=== PATIENT | female | born 2005 | race Two or more races ===

== ENCOUNTER 2024-09-29 19:43 | Observation (INO) | payer OTHER, SELFPAY ==
[2024-09-29] VITALS (8 sets, daily range): BP systolic 129–146; BP diastolic 59–77; PULSE 84–110; RESP 17; TEMP 36.4; BMI 43.0
--- NOTE | 2024-09-29 19:52 | XR_ITS ---
Examination: Complete OB ultrasound greater than 14 weeks Date and time of exam: September 29, 2024 2013 hrs. Indications: Vaginal bleeding and pelvic cramping beginning today Findings: Viable intrauterine single fetus with single amniotic sac presentation cephalic Cardiac motion 140 BPM Placenta anterior grade 2 Umbilical cord insertion 3 vessel seen Amniotic fluid volume adequate spine maternal right Cervix 3.0 cm Right ovary 3.5 x 2.4 cm arterial flow Left ovary obscured by bowel gas. Composite estimated gestational age based on BPD, head circumference, abdominal circumference, femur length is 20 weeks 1 day Estimated weight 328 g. Survey of intracranial anatomy, spinal anatomy, abdominal anatomy, four-chamber heart performed with no abnormalities identified. Impression: Viable intrauterine gestation cephalic presentation Placenta anterior grade 2 no abruption.
--- NOTE | 2024-09-29 19:52 | XR_ITS ---
Examination: Transvaginal ultrasound of the pelvis, Limited Technique: Transvaginal sonographic images pelvis performed using veras scale imaging Exam date and time: September 29, 20242042 hrs. Indications: Bilateral bleeding and pelvic cramping onset today Findings: Cervix 3.2 cm closed Impression: Cervix 3.2 cm closed.
== END 2024-09-29 21:02 | disposition home or self-care (01) ==
PROVIDERS: Admitting Provider Student in an Organized Health Care Education/Training Program; Visit Provider Student in an Organized Health Care Education/Training Program
DX: O46.92 Antepartum hemorrhage, unspecified, second trimester (principal); Z3A.20 20 weeks gestation of pregnancy
CPT/HCPCS: 59899; 76805; 76830

== ENCOUNTER 2025-02-02 07:53 | Outpatient (RCR) | payer OTHER, MEDICAID, SELFPAY ==
--- NOTE | 2025-01-05 08:04 | XR_ITS ---
Examination: Biophysical profile, ultrasound Date and time of exam: January 05, 2025 0808 hours INDICATIONS: Diagnosis maternal obesity complicating Technique: Multiple transabdominal sonographic images of the pelvis abdomen obtained. Attention is directed to the breathing movement, gross body movement, amniotic fluid volume and tone. Findings: Amniotic fluid index 12.5 cm Total biophysical profile is 8 of 8. breathing movement is 2. Gross body movement is 2. tone is 2. Qualitative amniotic fluid volume is 2 Impression: Biophysical profile is 8 of 8.
[2025-01-05 08:37] VITALS: BP 135/63; PULSE 106; RESP 16; TEMP 36.6
--- NOTE | 2025-01-12 08:02 | XR_ITS ---
Examination: Biophysical profile, ultrasound Date and time of exam: 04/14/2025 0813 hours INDICATIONS: Diagnosis maternal obesity complicating Technique: Multiple transabdominal sonographic images of the pelvis abdomen obtained. Attention is directed to the breathing movement, gross body movement, amniotic fluid volume and tone. Findings: Amniotic fluid index 11.5 cm Total biophysical profile is 8 of 8. breathing movement is 2. Gross body movement is 2. tone is 2. Qualitative amniotic fluid volume is 2 Impression: Biophysical profile is 8 of 8.
[2025-01-12 08:38] VITALS: BP 121/74; PULSE 112; RESP 16; TEMP 36.7
--- NOTE | 2025-01-19 08:02 | XR_ITS ---
Examination: Biophysical profile, ultrasound Date and time of exam: 04/21/2025 0819 hours INDICATIONS: Maternal obesity Technique: Multiple transabdominal sonographic images of the pelvis abdomen obtained. Attention is directed to the breathing movement, gross body movement, amniotic fluid volume and tone. Findings: Amniotic fluid index 10.7 cm Total biophysical profile is 8 of 8. breathing movement is 2. Gross body movement is 2. tone is 2. Qualitative amniotic fluid volume is 2 Impression: Biophysical profile is 8 of 8.
[2025-01-19 08:35] VITALS: BP 117/57; PULSE 83; RESP 16; TEMP 36.8
--- NOTE | 2025-01-26 08:07 | XR_ITS ---
Examination: Biophysical profile, ultrasound Date and time of exam: January 26, 2025 0817 hours INDICATIONS: Diagnosis maternal obesity complicating Technique: Multiple transabdominal sonographic images of the pelvis abdomen obtained. Attention is directed to the breathing movement, gross body movement, amniotic fluid volume and tone. Findings: Amniotic fluid index 12.1 cm Total biophysical profile is 8 of 8. breathing movement is 2. Gross body movement is 2. tone is 2. Qualitative amniotic fluid volume is 2 Impression: Biophysical profile is 8 of 8.
[2025-01-26 08:38] VITALS: BP 116/68; PULSE 115; RESP 16; TEMP 36.7
--- NOTE | 2025-02-02 08:12 | XR_ITS ---
Examination: Biophysical profile, ultrasound Date and time of exam: February 02, 2025 0825 hours INDICATIONS: Diagnosis maternal obesity complicating Technique: Multiple transabdominal sonographic images of the pelvis abdomen obtained. Attention is directed to the breathing movement, gross body movement, amniotic fluid volume and tone. Findings: Amniotic fluid index 9.3 cm Total biophysical profile is 8 of 8. breathing movement is 2. Gross body movement is 2. tone is 2. Qualitative amniotic fluid volume is 2 Impression: Biophysical profile is 8 of 8.
[2025-02-02 08:55] VITALS: BP 141/78; PULSE 98; RESP 16; TEMP 36.8
== END 2025-02-02 23:59 | disposition home or self-care (01) ==
LOC: S4S1 07:53
PROVIDERS: Referring Provider Nurse Practitioner Women's Health; Visit Provider Nurse Practitioner Women's Health
DX: O99.213 Obesity complicating pregnancy, third trimester (principal); E66.9 Obesity, unspecified; Z3A.38 38 weeks gestation of pregnancy
CPT/HCPCS: 59025; 76819

== ENCOUNTER 2025-02-10 23:40 | Observation (INO) | payer OTHER, MEDICAID, SELFPAY ==
[2025-02-10 23:57] VITALS: BMI 43.4
[2025-02-11 00:06] VITALS: BP 120/75; PULSE 100; RESP 18; RESP 99; TEMP 37.4
[2025-02-11 00:37] VITALS: BP 132/72; PULSE 100
== END 2025-02-11 01:10 | disposition home or self-care (01) ==
PROVIDERS: Admitting Provider Obstetrics & Gynecology; Visit Provider Obstetrics & Gynecology
DX: O46.93 Antepartum hemorrhage, unspecified, third trimester (principal); Z3A.39 39 weeks gestation of pregnancy
CPT/HCPCS: 59025; 59899

== ENCOUNTER 2025-02-19 04:45 | Inpatient (IN) | payer OTHER, MEDICAID, SELFPAY ==
[2025-02-19] VITALS (16 sets, daily range): BP systolic 125–175; BP diastolic 63–107; PULSE 71–93; RESP 14–19; TEMP 36.7–37.1; BMI 43.9
--- NOTE | 2025-02-19 05:43 | XR_ITS ---
Examination: visualization limited TECHNIQUE: Limited transabdominal sonographic images pelvis Date and time: February 19, 2025 0719 hours INDICATIONS: Diagnosis postdates, preinduction evaluation FINDINGS: Viable intrauterine gestation cephalic presentation spine maternal left Cardiac motion 152 bpm Estimated weight 3798 g IMPRESSION: Viable intrauterine gestation cephalic presentation
[2025-02-19 06:08] LABS: Basophils % (Auto) 0 % (0-2.5); Eosinophils # (Auto) 0.1 Thou/mm3 (0.0-0.5); Eosinophils % (Auto) 1 % (0-10); Hematocrit 30.4 % (36.0-46.0); Hemoglobin 10.3 g/dL (12.0-16.0); Immature Granulocytes % (Auto) 1 % (0-0); Immature Granulocytes Auto 0.04 Thou/mm3 (0.00-0.00); Lymphocytes # (Auto) 2.4 Thou/mm3 (1.0-4.8); Lymphocytes % (Auto) 29 % (10-50); Mean Corpuscular HGB Conc 33.9 g/dl (31.0-37.0); Mean Corpuscular Hemoglobin 24.1 pg (25.0-35.0); Mean Corpuscular Volume 71 fL (80-100); Monocytes # (Auto) 0.6 Thou/mm3 (0.0-0.8); Monocytes % (Auto) 7 % (0-12); Neutrophils % (Auto) 61 % (37-80); Nucleated Red Blood Cell % 0 /100 WBC (0); Platelet Count 271 Thou/mm3 (140-440); RDW Standard Deviation 37.5 fL (36.4-46.3); Red Blood Count 4.27 Miln/mm3 (4.00-5.20); White Blood Count 8.1 Thou/mm3 (3.6-11.0)
[2025-02-19 06:31] LABS: Partial Thromboplastin Time 26.8 Seconds (22.0-36.0); Prothrombin Time 10.6 Seconds (9.0-12.2)
[2025-02-19 06:32] LABS: Alanine Aminotransferase 37 U/L (10-49); Albumin, Serum 3.9 gm/dL (3.5-5.0); Albumin/Globulin Ratio 1.6 (1.2-2.2); Alkaline Phosphatase 306 U/L (46-116); Anion Gap 13 (7-16); Aspartate Amino Transferase 26 U/L (0-34); BUN/Creatinine Ratio 11 Ratio (12-20); Bilirubin,Total 0.3 mg/dL (0.3-1.2); Blood Urea Nitrogen 8 mg/dL (9-23); Calcium (Corrected) 9.1 mg/dL (8.5-10.1); Carbon Dioxide 19.3 mMol/L (20.0-31.0); Chloride 107 mMol/L (98-107); Creatinine (Component) 0.7 mg/dL (0.6-1.3); Estimated Creatinine Clearance 147.7 mL/min (>60); Globulin 2.5 gm/dL (2.3-3.5); Glucose 97 mg/dL (74-106); Osmolality,Calculated 275 (275-295); Potassium 4.2 mMol/L (3.4-5.1); Sodium 139 mMol/L (136-145); Total Protein 6.4 gm/dL (5.7-8.2); Uric Acid 4.4 mg/dL (3.1-7.8); eGFR > 60 See Note
[2025-02-19 06:51] LABS: Syphilis Nonreactive (Nonreactive)
[2025-02-19 06:52] LABS: Fibrinogen 624 mg/dL (175-375)
--- NOTE | 2025-02-19 09:04 | ESHP_ITS ---
Documentation for date of: 02/19/25 OB Labor/Induct. HPI History of Present Illness : 1 Term pregnancies: 0 pregnancies: 0 Living children: 0 History of Abortions: Spontaneous and Elective: 0 History of sections: No History of : No MAN: 02/14/25 Comments: H and P dictated STAT in [facility] [id number] Labs Labs: Positive: Group Beta Strep, Negative: RPR, Hepatitis B, Rubella Titre, HIV, Chlamydia and Gonorrhea and Unknown: Herpes Type 1, Herpes Type 2 and Covid-19 Past Medical History Surgical History SURGICAL: Negative Section Meds Home Medications and Allergies Home Medications ?Medication ?Instructions ?Recorded ?Confirmed ?Type No Known Home Medications 02/11/25 0601/31 History Allergies Allergy/AdvReac Type Severity Reaction Status Date / Time No Known Allergies Allergy Verified 02/19/25 05:26 OB Exam Physical Exam Vital signs: Temp Pulse Resp BP O2 Del Method 98.1 F 71 14 145/95 H Room Air 02/19/25 07:17 02/19/25 07:06 02/19/25 07:17 02/19/25 07:17 02/19/25 07:17 OB Results Labs 02/19/25 05:15 02/19/25 05:15 Labs: Short CBC 02/19/25 Range/Units 05:15 WBC 8.1 (3.6-11.0) Thou/mm3 Hgb 10.3 L (12.0-16.0) g/dL Hct 30.4 L (36.0-46.0) % Plt Count 271 (140-440) Thou/mm3 BMP 02/19/25 05:15 Sodium 139 Potassium 4.2 Chloride 107 Carbon Dioxide 19.3 L BUN 8 L Creatinine 0.7 Glucose 97 Calcium 9.0 Liver Function 02/19/25 Range/Units 05:15 Total Bilirubin 0.3 (0.3-1.2) mg/dL AST 26 (0-34) U/L ALT 37 (10-49) U/L Alkaline Phosphatase 306 H (46-116) U/L Albumin 3.9 (3.5-5.0) gm/dL
[2025-02-19 09:36] LABS: Collection Type, Urine Clean Catch; WBC,Urine 0 /hpf (0-5)
[2025-02-19] MEDS: DINOPROSTONE 10 MG VAG.SUPP VAGINAL (09:47)
--- NOTE | 2025-02-19 09:51 | ESHP_ITS ---
RE: DANNY GAITAN : 2005 DATE OF ADMISSION: 02/19/2025 HISTORY OF PRESENT ILLNESS: This is a 19-year-old 1, para 0 with intrauterine at 40 weeks and 4 days who presents for induction of labor from [facility] for postdates. On admission, the patient was noted to have elevated blood pressures. They have been running in the 140s/90s. She denies any headache, change in vision, or right upper quadrant pain. She denies any chest pain, palpitations, shortness of breath, or lower extremity pain. Her [facility] labs are in the normal range. Hemoglobin was 10.3, but platelets, LFTs, and creatinine are all in the normal range. Her care was complicated by obesity and a BMI of 44. The patient has been undergoing antepartum testing on a weekly basis in the form of biophysical profiles and non-stress tests. She also has iron deficiency anemia. ALLERGIES: NO KNOWN DRUG ALLERGIES. MEDICATIONS: 1. multivitamin 1 p.o. daily. 2. Ferrous sulfate 325 mg 1 p.o. daily. PAST MEDICAL HISTORY: Obesity, iron deficiency anemia. PAST SURGICAL HISTORY: Denies. FAMILY HISTORY: Maternal grandmother, hypertension and diabetes. Maternal grandfather, hypertension. PHYSICAL EXAMINATION: VITAL SIGNS: Blood pressure is 145/95, heart rate 90, respirations 18, temperature 98.1. HEENT: Oropharynx and sclerae are clear. LUNGS: Clear to auscultation bilaterally. HEART: Regular rate and rhythm. ABDOMEN: Gravid, term size consistent with estimated weight 3798 g. EXTREMITIES: Nontender. SKIN: No gross rashes or lesions. NEUROLOGIC: No focal deficit. ASSESSMENT: Intrauterine at 40 weeks and 4 days, gestational hypertension, obesity, group B strep colonization positive. PLAN: Induction of labor. Anticipate spontaneous vaginal delivery. Informed consent was obtained. The patient was made aware of the risks, complications, alternatives, and benefits of operative vaginal delivery and delivery and agrees with these modes of delivery if indicated. DT: 09:03:54 TT: 09:49:00 Ref: [id number] - TID: [id number]
[2025-02-19 09:58] LABS: Bacteria,Urine Rare; Bilirubin,Urine Negative (Negative); Blood,Urine 2+ (Negative); Clarity,Urine Clear (Clear/Hazy); Color,Urine Lt-Yellow (Lt Yel-Yel); Glucose, Urine Negative (Negative); Ketones,Urine Negative (Negative); Leukocyte Esterase,Urine Negative (Negative); Nitrite,Urine Negative (Negative); PH,Urine 6.5 (5.0-7.0); Protein,Urine Negative (Neg - Trace); RBC,Urine 1 /hpf (0-3); Specific Gravity,Urine 1.015 (1.001-1.035); Squamous Epithelial Cell,Urine 2 /hpf (0-5); Urobilinogen,Urine Negative mg/dL (0.0-1.0)
[2025-02-19 10:06] LABS: Creatinine,Random Urine 78 mg/dL (30-125); Protein Total, Random Urine 21 mg/dL (1-14)
[2025-02-19] MEDS: MISOPROSTOL 50 mCg TABLET PO (21:38)
[2025-02-20] VITALS (144 sets, daily range): BP systolic 95–186; BP diastolic 45–109; PULSE 62–119; RESP 12–22; TEMP 36.8–37.2; O2SAT 92–100
[2025-02-20] MEDS: MISOPROSTOL 50 mCg TABLET PO (02:06)
[2025-02-20] MEDS: fentaNYL CIT INJ 50 mCg/ML AMP 2ML 100 MCG IVP ×2 (02:33→05:32)
[2025-02-20] MEDS: ONDANSETRON INJ 2 MG/ML INJ 2 ML 4 MG IVP (02:36)
--- NOTE | 2025-02-20 04:50 | PC.NURSE ---
Pt taken to CT via wheelchair
[2025-02-20] MEDS: RINGERS LACTATED 1000 ML 1,000 ML 100 ML IV ×2 (05:37→08:45)
[2025-02-20] MEDS: RINGERS LACTATED 1000 ML 1,000 ML 999 ML IV (07:45)
--- NOTE | 2025-02-20 08:46 | PD.LDPN ---
Documentation for date of: 02/20/25 OB Labor Progress Note Pain Control Comments: Epidural Pelvic Exam Dilation (cm): 1.5 Effacement (%): 90 station: -2 Amniotic membrane status: Intact Comments: Per RN exam Contractions Monitor mode: External Contraction frequency: 2-3.5 Contraction intensity: Mild Status status: Category l Assessment and Plan Comments: Augment with Pitocin Anticipate
[2025-02-20] MEDS: OXYTOCIN in NS 30 units 30 UNIT/500 ML BAG IV (11:34)
--- NOTE | 2025-02-20 14:41 | PD.LDPN ---
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 The patient was made aware of the risks complications alternatives and benefits of delivery and she agrees.
--- NOTE | 2025-02-20 14:46 | PD.LDDS ---
DS: Providers Provider Date of admission: 02/19/25 04:45 Primary care physician: Antonio Cohen MD Admitting Provider: Adalgisa Robles MD Attending Provider on Admission: Marlo Landa MD Attending Provider on DC: Marlo Landa MD Discharging Provider: Marlo Landa MD DS: Diagnosis Discharge Diagnosis (1) delivery delivered: Status: Acute (2) Uterine atony: Status: Acute (3) Bilateral pneumonia: Status: Acute Problem List Completed Was Problem List Reviewed/Reconciled?: Yes Summary/Hosp Course Peripartum Data Delivery Method: Low Transverse Time Spent with Patient Time attestation: Total time spent providing and/or coordinating discharge services: Exam Vital Signs Temp Pulse Resp BP Pulse Ox O2 Del Method 98.2 F 88 20 126/70 93 L Room Air 02/20/25 07:25 02/20/25 14:42 02/20/25 07:25 02/20/25 14:42 02/20/25 14:42 02/20/25 07:25 Discharge Plan Plan Patient Disposition: HOME (Self Care) Patient condition on transfer: Stable Prescriptions/Referrals Prescriptions/Med Rec: New hydrocodone-acetaminophen 5-325 mg tablet 1 tab PO Q6H MDD 4 PRN (Reason: pain) Qty: 20 0RF ibuprofen 600 mg tablet 600 mg PO Q6H PRN (Reason: pain) Qty: 30 0RF azithromycin 500 mg tablet 500 mg PO QDAY 5 Days Qty: 5 0RF Referrals: Antonio Cohen MD [Primary Care Provider] - Patient/Caregiver Discharge Instructions Discharge Activity: activity as tolerated Other Discharge Activity Instructions:: Follow up office 1 week. Print Language: Sammarinese Stand Alone Forms: Rebeca Award Info., Patient Portal Info Letter Planned Discharge Date 02/23/25 (3) Bilateral pneumonia Qualifiers: Pneumonia type: due to unspecified organism
[2025-02-20] MEDS: CITRIC ACID/SODIUM CITR 15 ML UDC (BICITRA) 30 ML PO (15:22)
[2025-02-20] MEDS: METOCLOPRAMIDE INJ 5 MG/ML VIAL 2 ML 10 MG IVP (15:22)
[2025-02-20] MEDS: FAMOTIDINE INJ 10 MG/ML VIAL 2 ML 20 MG IV (15:22)
[2025-02-20] MEDS: ceFAZolin/D5W 2 GM IV 2 GM/100 ML BAG IV (15:26)
--- NOTE | 2025-02-20 16:59 | PD.GYNPROC ---
Operative Note - COMPENSATION AND BENEFITS ADVISOR Procedure Date of procedure: 02/20/25 Procedure Performed: Primary low-transverse section Via Pfannenstiel skin incision Indication: Intrauterine at 40 weeks and 5 days Gestational hypertension Induction of labor Failed induction Declines further trial of induction Pre-Op diagnosis: Intrauterine at 40 weeks and 5 days Gestational hypertension Induction of labor Failed induction Declines further trial of induction Post-Op diagnosis: Intrauterine at 40 weeks and 5 days Gestational hypertension Induction of labor Failed induction Declines further trial of induction Procedure description: After proper informed consent was obtained and the patient was made aware of the risks, complications, alternatives and benefits of the proposed procedure she was taken to the operating room where she underwent induction of spinal anesthesia. She was prepped and draped in the usual sterile fashion. A timeout was performed.? A Pfannenstiel skin incision was made with the scalpel and carried through to the underlying layer of fascia with the Bovie. The fascia was nicked in the midline incision and the incision was extended bilaterally with the Bovie. The inferior aspect of the fascial incision was grasped with Nica clamps elevated and the underlying rectus muscle dissected off with the Bovie. The superior aspect the fascial incision was grasped with Nica clamps elevated and the underlying rectus muscle dissected off with the Bovie. The rectus muscles were in the midline. The peritoneum was grasped between 2 Collins clamps and entered sharply with the Metzenbaum scissors. The peritoneum was extended superiorly and inferiorly with good visualization of the bladder. The vesicouterine peritoneum was incised transversely and the bladder flap created digitally. A Abdiaziz blade was inserted. A low transverse incision was made in the uterus with a scapel and the incision was extended digitally. The 's head delivered and the mouth and nose were suctioned with the bulb suction. The shoulder and body delivered atraumatically. The cord was clamped after 30 second delayed cord clamping and the cord was cut.? The was handed off to the waiting Pediatric staff, cord blood was collected for lab testing. The placenta was removed complete and intact. The uterus was exteriorized and cleared of all clots and debris. The uterine incision was closed with #1-0 chromic catgut suture in a running interlocking fashion. A second layer of the same suture was used to imbricate the first layer and obtain excellent hemostasis. The vesicouterine peritoneum was closed with 2-0 chromic catgut suture in a running fashion. The firm uterus was returned to the abdomen. The gutters were cleared of all clots and debris. The peritoneum was closed with 0 chromic catgut suture in running fashion. The rectus muscle was closed with 0 chromic catgut suture. The fascia was closed with 0 Vicryl beginning at each angle and ending in the center in a running fashion. The subcutaneous tissue was irrigated with warmed normal saline solution and found to be hemostatic. The subcutaneous tissue was closed with 2-0 chromic catgut suture in a running fashion. The skin was closed with 4-0 Monocryl. A Dermabond Prineo dressing was applied and a sterile pressure dressing was applied.? She tolerated the procedure well. Counts were correct. I discussed with the patient the nature of her condition, intraoperative findings and expectation for recovery all? questions answered. Specimen: none Estimated blood loss (ml): 600 Findings: Live Apgars 9 / 9 Clear amniotic fluid Uterus ovaries and fallopian tubes grossly within normal limits Uterus initially atonic but responded to uterotonic's Nuchal cord Occiput posterior Complications: other (Uterine atony) Surgical staff Operation Date: 02/20/25 16:15 Case Staff PRINCIPAL SECURITY ARCHITECT: Marcin Quinn RN First Assistant: Ella Parham Diagnosis Discharge Diagnosis (1) Gestational hypertension: Status: Acute (2) delivery delivered: Status: Acute Problem List Completed Was Problem List Reviewed/Reconciled?: Yes (1) Gestational hypertension Qualifiers: Trimester: third trimester Qualified Code(s): O13.3 - Gestational [-induced] hypertension without significant proteinuria, third trimester
[2025-02-20] MEDS: OXYTOCIN in NS 20 units 20 UNIT/1,000 ML BAG 125 UNIT IV (19:10)
--- NOTE | 2025-02-20 19:55 | PC.NURSE ---
Dr. Landa aware of elevated BP 161/103, per MD will put in new orders.
--- NOTE | 2025-02-20 20:22 | PD.LDDELS ---
Data (Sanz) Data Hx Section: No : 1 Term: 0 : 0 Livin Abortions: Spontaneous & Theraputic: 0 Delivery Data (Sanz) Labor Data Initiation of labor: Induction Induction/Augmentation Agent: Cytotec-PO and Cervidil ROM date: 02/20/25 ROM time: 16:30 Amniotic membrane rupture type: Spontaneous Amniotic fluid description: Clear Delivery Data EDC: 02/15/25 EDC calculated by:: LMP/early US confirmation [place] delivery date: 02/20/25 [place] delivery time: 16:30 Gestational age (weeks): 40 Gestational age (days): 5 Placenta delivery date: 02/20/25 Placenta delivery time: 16:31 Delivered by: Marlo Landa Delivery nurse: JULIANNE Sims nurse: JULIANNE Walker Drum Sprayer at delivery: No Support person(s) at delivery: MOM OF PATIENT Delivery Method Delivery method: Low Transverse Presentation: Vertex position: OP Anesthesia Type Anesthesia Type: Spinal Placenta Placenta delivery description: Manual Removal Cord blood sent to lab: Yes cord blood collection: Cord Blood Type Episiotomy Episiotomy description: None EBL Estimated blood loss (ml): 600 Umbilical Cord cord description: 3 Vessels Additional Procedures None Complications Complications: Uterine atony [place] Data (Sanz) Data order: 1 's gender: Male Identification band number: [id number] weight (gms): 8 lb 5.688 oz Weight (pounds): 8 lbs and 5.7 ozs [place] length: 20.5 in 1 minute: 9 5 minutes: 9 10 minutes: 9
[2025-02-20] MEDS: SIMETHICONE 80 MG CHEW PO (20:43)
--- NOTE | 2025-02-20 21:00 | PC.NURSE ---
0 At this time, pt c/o pressure to back and states when she takes a deep breath she feels pressure/pain to her rib cage. VS: HR 73, BP 141/91, RR 18, SpO2 97% room air. Pt is alert/oriented x3. Respirations are even and unlabored. No s/s of acute distress noted. 2100 Dr. Landa made aware of symptoms of pt, per Dr. Landa will enter new orders.
[2025-02-20] MEDS: hydrALAZINE HCL 25 MG TABLET PO (21:29)
[2025-02-20 22:14] LABS: Basophils % (Auto) 0 % (0-2.5); Eosinophils % (Auto) 0 % (0-10); Hematocrit 28.2 % (36.0-46.0); Hemoglobin 9.4 g/dL (12.0-16.0); Immature Granulocytes % (Auto) 0 % (0-0); Immature Granulocytes Auto 0.03 Thou/mm3 (0.00-0.00); Lymphocytes # (Auto) 1.8 Thou/mm3 (1.0-4.8); Lymphocytes % (Auto) 16 % (10-50); Mean Corpuscular HGB Conc 33.3 g/dl (31.0-37.0); Mean Corpuscular Volume 72 fL (80-100); Monocytes # (Auto) 0.7 Thou/mm3 (0.0-0.8); Monocytes % (Auto) 6 % (0-12); Neutrophils # (Auto) 8.9 Thou/mm3 (1.8-7.7); Neutrophils % (Auto) 77 % (37-80); Nucleated Red Blood Cell % 0 /100 WBC (0); Platelet Count 214 Thou/mm3 (140-440); RDW Standard Deviation 39.4 fL (36.4-46.3); Red Blood Count 3.91 Miln/mm3 (4.00-5.20); White Blood Count 11.5 Thou/mm3 (3.6-11.0)
--- NOTE | 2025-02-20 22:50 | XR_ITS ---
Examination: CTA chest with intravenous contrast 2-D reconstructions 3-D reconstructions, vascular Date and time of exam: February 21, 2025 0459 hours INDICATIONS: Chest pain and shortness of breath this week CTDI: vol (mGy) 55 DLP: (mGycm) 743 Technique: Multiple axial sections of the thorax have been obtained. 3 mm slice thickness, from below the hemidiaphragms to above the apices of the lungs. Mediastinal and lung density settings have been obtained. 2-D sagittal and coronal reconstructions. 3-D angiographic renderings, 3-D volume renderings, 3D post processing, vascular maximum intensity projections obtained. Contrast administered is 96 cc Isovue-370. Low dose protocols were performed. One or more of the following dose reduction techniques were used; automated exposure control, adjustment of the mA and/or KV according to patient size, use of iterative reconstruction technique. Findings: No thoracic aortic aneurysm and dilatation No pulmonary artery filling defects No paratracheal tracheobronchial or bronchopulmonary adenopathy Bibasilar pneumonia Pneumoperitoneum, presumably status No focal liver or splenic lesions Abdominal aorta visualized not enlarged IMPRESSION: Negative for pulmonary artery emboli Bibasilar pneumonia, consider aspiration pneumonia Pneumoperitoneum, which may be postoperative, clinical correlation advised
--- NOTE | 2025-02-20 23:50 | PC.NURSE ---
Called CT department, spoke to tech regarding ordered CT scan. Tech states she is aware of order; however, not able to do scan right now due to CT scans ordered in ER. Per arabella, will call back when she is available to do scan.
[2025-02-21] VITALS (8 sets, daily range): BP systolic 129–145; BP diastolic 75–91; PULSE 84–99; RESP 17–19; TEMP 36.8–37; O2SAT 95–97
--- NOTE | 2025-02-21 02:13 | PC.NURSE ---
Called CT department regarding ordered scan, no response. Charge nurse Ginny merino.
--- NOTE | 2025-02-21 03:08 | PC.NURSE ---
Called CT department ext [phone], still no response from certified coatings inspector.
--- NOTE | 2025-02-21 03:15 | PC.NURSE ---
Called CT department ext [phone], spoke to collection systems foremanarabella Yi. Per Kassidy, she is still busy with ER CT orders, will call back when available. At this time, pt is alert/oriented x3. Respirations are even and unlabored. No s/s of acute distress noted. Plan of care ongoing.
[2025-02-21] MEDS: KETOROLAC INJ 30 MG/ML VIAL IVP (04:39)
--- NOTE | 2025-02-21 05:29 | PRELIM_ITS ---
CT angiogram of the chest with intravenous contrast (axial sections with sagittal and coronal reformats) February 21, 2025 0459 hours Clinical History: Postoperative Chest Pain Technique:Helical axial sections with sagittal and coronal reformats of the chest were obtained with intravenous contrast. Iterative reconstruction technique was employed to reduce patient radiation exposure. 3D/MIP reconstructed images were also provided. Findings: The evaluation of some pulmonary artery divisions is limited due to a suboptimal bolus of contrast. No pulmonary thromboembolism in the remainder of the pulmonary artery divisions. The mediastinum demonstrates no evidence of mass or lymphadenopathy. The thoracic aorta is unremarkable. There is no pericardial effusion. Bibasilar mild dependent pulmonary opacities are seen. Bibasilar streaky atelectasis is present. No evidence of pneumothorax. There are small pleural effusions bilaterally. The osseous structures are unremarkable. There is mild pneumoperitoneum. There is mild fluid anteriorly to the gallbladder. Impression: No CT evidence of pulmonary thromboembolism (limited evaluation of some of the pulmonary artery divisions due to a suboptimal bolus of contrast). Recommend additional evaluation, if clinically indicated. Mild dependent pulmonary opacities, which may represent sequelae of aspiration. Small pleural effusions bilaterally. Mild pneumoperitoneum, likely postoperative. Recommend clinical correlation. Report Electronically Signed By: Blane Espitia 02/21/2025 5:28:53 AM [EST]
[2025-02-21] MEDS: hydrALAZINE HCL 25 MG TABLET PO ×3 (05:45→22:39)
--- NOTE | 2025-02-21 08:05 | ESPR_ITS ---
RE: DANNY GAITAN : 2005 DATE OF SERVICE: 02/21/2025 SUBJECTIVE: Postoperative #1, patient denies any problem or complaint. Yesterday, she had some postoperative chest pain. It has now resolved. She had a CT angiogram of the chest, which was positive for bilateral pneumonia (she was never intubated and did not aspirate) but negative for PE. She denies currently denies any cough, chest pain, palpitations, shortness of breath or lower extremity pain. She is voiding and ambulating, tolerating regular diet and passing flatus. She denies any excessive vaginal bleeding or dizziness or lightheadeness. OBJECTIVE: Vital Signs: Blood pressure 137/75, heart rate 88, respirations 18, and temperature 98.7. Lungs: Clear to auscultation bilaterally. Heart: Regular rate and rhythm. Abdomen: Dressing is dry and intact. Fundus is firm. Lochia is scant. Extremities: Nontender. ASSESSMENT AND PLAN: Postoperative day #1, status post delivery. Gestational Hypertension with blood pressure controlled on Hydralazine 25 mg po TID (initially her HR was low so we avoided Labetalol) I explained that for discharge tomorrow she will need to continue on antibiotics for 5 days and may need to continue hydralazine depending on her her blood pressures during the remaining hospital course. If her hypertension is just due to the then she will able to taper and stop the blood pressure med in time under the care of her OB provider. She was advised to track her BP at home and keep a log to bring to her appointments. DT: 06:37:13 TT: 08:05:00 Ref: [id number] - TID: [id number] [facility]
[2025-02-21] MEDS: DOCUSATE SOD 100 MG CAPSULE PO (09:15)
[2025-02-21] MEDS: ENOXAPARIN SOD INJ 40 MG/0.4 ML SYRINGE SC (09:15)
[2025-02-21] MEDS: AZITHROMYCIN 250 MG TABLET 500 MG PO (09:35)
[2025-02-21] MEDS: cefTRIAXone 2 GM in SODIUM CHLORIDE 0.9% (Popper) 50 ML IV (09:35)
[2025-02-21] MEDS: SIMETHICONE 80 MG CHEW PO ×2 (13:04→17:24)
[2025-02-21] MEDS: Milk Of Magnesia Susp 30 ML UDC PO (13:04)
[2025-02-21] MEDS: IBUPROFEN TAB 400 MG TABLET 800 MG PO (16:11)
[2025-02-22] VITALS (7 sets, daily range): BP systolic 109–142; BP diastolic 75–88; PULSE 79–94; RESP 16–19; TEMP 36.7–37.1; O2SAT 95–98
[2025-02-22] MEDS: IBUPROFEN TAB 400 MG TABLET 800 MG PO ×2 (01:13→09:54)
--- NOTE | 2025-02-22 07:59 | ESPR_ITS ---
Subjective Subjective Interval history: Patient sitting up in bed eating breakfast. Father of the baby is at bedside as is the baby. She still reports some mid back pain with breathing. No nausea or vomiting. Tolerating a general diet. Working on breast-feeding but she states she is not making a lot of milk. She has had to pump and dump because she had a CT scan of her chest 24 hours ago. She is able to breast-feed again as of 5 in the morning. She currently is on Zithromax and hydrochlorothiazide for suspected pneumonia. The plan will be to check a CBC and a chest x-ray today. Will see if she is feeling better later today and she might be discharged home then. She is a patient of [facility] delivered by Dr Landa. She is postop day #2 status post primary . Exam Vital Signs Temp Pulse Resp BP Pulse Ox O2 Del Method 98.8 F 89 16 109/75 95 Room Air 02/22/25 03:57 02/22/25 06:09 02/22/25 03:57 02/22/25 06:09 02/22/25 03:57 02/22/25 03:57 Narrative Exam Abdomen soft nontender and nondistended incision clean dry intact. Extremities show no cyanosis clubbing or edema. Objective Labs 02/20/25 21:54 02/19/25 05:15 Assessment & Plan Problem List (1) delivery delivered: Problem details: Patient doing well. Increase ambulation and falls. Recheck CBC and chest x-ray today Status: Acute (2) Uterine atony: Problem details: Recheck CBC today Status: Acute (3) Bilateral pneumonia: Problem details: Recheck chest x-ray PA and lateral today. Status: Acute Time Spent With Patient Time: Total time spent is greater than 50% in coordination of care (as documented) at patient's floor/unit and/or counseling patient: Time with patient: less than 15 minutes
--- NOTE | 2025-02-22 08:02 | XR_ITS ---
Examination: PA lateral chest 2 views TECHNIQUE: Upright PA lateral chest 2 views Date and time: February 22, 2025 0945 hours INDICATIONS: Chest pain post today FINDINGS: Pneumoperitoneum Normal heart size No pneumonia or pulmonary edema IMPRESSION: No pneumonia or pulmonary edema
[2025-02-22] MEDS: cefTRIAXone 2 GM in SODIUM CHLORIDE 0.9% (Popper) 50 ML IV (08:30)
[2025-02-22] MEDS: DOCUSATE SOD 100 MG CAPSULE PO (08:30)
[2025-02-22] MEDS: ENOXAPARIN SOD INJ 40 MG/0.4 ML SYRINGE SC (08:30)
[2025-02-22] MEDS: AZITHROMYCIN 250 MG TABLET 500 MG PO (08:31)
[2025-02-22 09:36] LABS: Basophils % (Auto) 0 % (0-2.5); Eosinophils # (Auto) 0.1 Thou/mm3 (0.0-0.5); Eosinophils % (Auto) 2 % (0-10); Hematocrit 25.3 % (36.0-46.0); Hemoglobin 8.3 g/dL (12.0-16.0); Immature Granulocytes % (Auto) 0 % (0-0); Immature Granulocytes Auto 0.03 Thou/mm3 (0.00-0.00); Lymphocytes % (Auto) 22 % (10-50); Mean Corpuscular HGB Conc 32.8 g/dl (31.0-37.0); Mean Corpuscular Hemoglobin 24.1 pg (25.0-35.0); Mean Corpuscular Volume 74 fL (80-100); Monocytes # (Auto) 0.7 Thou/mm3 (0.0-0.8); Monocytes % (Auto) 8 % (0-12); Neutrophils # (Auto) 6.4 Thou/mm3 (1.8-7.7); Neutrophils % (Auto) 69 % (37-80); Nucleated Red Blood Cell % 0 /100 WBC (0); Platelet Count 217 Thou/mm3 (140-440); RDW Standard Deviation 41.2 fL (36.4-46.3); Red Blood Count 3.44 Miln/mm3 (4.00-5.20); White Blood Count 9.3 Thou/mm3 (3.6-11.0)
[2025-02-22] MEDS: hydrALAZINE HCL 25 MG TABLET PO (14:11)
--- NOTE | 2025-02-22 17:37 | ESDS_ITS ---
DS: Providers Provider Date of admission: 02/19/25 04:45 Primary care physician: Antonio Cohen MD Admitting Provider: Adalgisa Robles MD Attending Provider on Admission: Marlo Landa MD Consults: 02/20/25 18:11 Referral Routine Comment: Attending Provider on DC: Esthela Mccl[facility] ([facility]) Discharging Provider: Esthela Mcclure MD ([facility]) Anticipated date of discharge: 02/22/25 DS: Diagnosis Discharge Diagnosis (1) Failed induction: Status: Acute (2) delivery delivered: Status: Acute Assessment & Plan: No heavy lifting intercourse tampons douching for 6 weeks (3) BMI 40.0-44.9, adult: Status: Acute Assessment & Plan: Lovenox x 6 weeks Problem List Completed Was Problem List Reviewed/Reconciled?: Yes Summary/Hosp Course Brief History: Patient is a 19-year-old G1, P0 at 40 weeks and 4 days admitted 02/19/[address] Landa for an induction of labor secondary to postdates. Patient's blood pressures were also elevated. She ended up failing an induction of labor. Please see history and physical and progress notes for further details. Patient underwent a primary low-transverse section 02/20/2025. Please see op report for further details. Postoperatively she was reporting some chest pain and shortness of breath and a CT of the chest was ordered. Please see rad iological reports for further information. It was suggested she might have pneumonia and she was started on Rocephin and Zithromax. Patient did well postoperatively. Postoperative day #2 she was afebrile vital signs were stable hemoglobin was stable started out at 10.3 and it was 8.3 her white count was down patient wanted to go home. A repeat chest x-ray was negative for pneumonia patient was discharged home postoperative day #2 in stable condition. Peripartum Data Delivery Method: Low Transverse Episiotomy Description: None Procedures: Procedures Operation Date: 02/20/25 16:15 Actual Procedure Side Surgeon p in OB Not Applicable Marlo Landa MD complications: other (Fever with CT of the chest revealing possible pneumonia, treated for possible pneumonia. Repeat chest x-ray negative) Status at Discharge Cognitive/behavioral status at discharge: Alert and oriented x 3 in no apparent distress Functional status at discharge: independent ambulation Overall status at discharge: patient is progressing back to baseline Time Spent with Patient Time attestation: Total time spent providing and/or coordinating discharge services: Time spent: Less than 30 minutes Specific discharge activities: No heavy lifting intercourse tampons douching swimming pool or bathtub x 6 weeks Exam Vital Signs Temp Pulse Resp BP Pulse Ox O2 Del Method 98.6 F 79 16 130/78 98 Room Air 02/22/25 15:52 02/22/25 15:52 02/22/25 15:52 02/22/25 15:52 02/22/25 15:52 02/22/25 15:52 Narrative Exam Fundus firm nontender incision clean dry and intact extremities show 1+ edema of ankles Discharge Plan Plan Patient Disposition: HOME (Self Care) Disposition Comment: Stable Patient condition on transfer: Stable Prescriptions/Referrals Prescriptions/Med Rec: New hydrocodone-acetaminophen 5-325 mg tablet 1 tab PO Q6H MDD 4 PRN (Reason: pain) Qty: 20 0RF ibuprofen 600 mg tablet 600 mg PO Q6H PRN (Reason: pain) Qty: 30 0RF azithromycin 500 mg tablet 500 mg PO QDAY 5 Days Qty: 5 0RF hydralazine 25 mg tablet 25 mg PO TID Qty: 90 1RF enoxaparin 40 mg/0.4 mL Syringe 40 mg SCi QDAY 60 Days Qty: 24 0RF Referrals: Antonio Cohen MD [Primary Care Provider] - Patient/Caregiver Discharge Instructions Discharge Activity: activity as tolerated Other Discharge Activity Instructions:: Follow up office 1 week. Other Discharge Diet Instructions: General Diet as tolerated drink lots of water Education Materials: After Delivery [place] Concerns, Breast Care After , After a , : Caring for Yourself, C Section Dc Print Language: Faroese Activity Restrictions/Additional Instructions: No heavy lifting intercourse tampons or douching x 6 weeks call with fevers chills heavy vaginal bleeding or severe depression Stand Alone Forms: Rebeca Award Info., Patient Portal Info Letter Discharge Order Discharge Orders: Discharge (Routine); Ordered 02/22/25 Ordered By: Esthela Mcclure ([facility]) Planned Discharge Date 02/22/25 (1) Failed induction Qualifiers: Failed induction of labor type: medical Qualified Code(s): O61.0 - Failed medical induction of labor
== END 2025-02-22 18:03 | disposition home or self-care (01) | DRG 786 ==
LOC: S4SX 02-20 15:40 → S4NX 02-20 15:57
PROVIDERS: Nurse Practitioner Women's Health; Obstetrics & Gynecology; Admitting Provider Student in an Organized Health Care Education/Training Program; PCP Family Medicine; Visit Provider Specialist
PROC: 10D00Z1 Extraction of Products of Conception, Low, Open Approach (ICD-10-PCS; CPT 59514; principal; 2025-02-20 16:00)
DX: O13.4 Gestational [pregnancy-induced] hypertension without significant proteinuria, complicating childbirth (principal); J18.9 Pneumonia, unspecified organism; O99.53 Diseases of the respiratory system complicating the puerperium; O48.0 Post-term pregnancy; D50.9 Iron deficiency anemia, unspecified; O61.0 Failed medical induction of labor; O62.2 Other uterine inertia; O69.81X0 Labor and delivery complicated by cord around neck, without compression, not applicable or unspecified; O99.02 Anemia complicating childbirth; O99.214 Obesity complicating childbirth; O99.824 Streptococcus B carrier state complicating childbirth; Z3A.40 40 weeks gestation of pregnancy; Z79.899 Other long term (current) drug therapy; Z37.0 Single live birth
CPT/HCPCS: 36415; 59409; 71046; 71275; 76815; 80053; 81001; 82570; 84156; 84550; 85025; 85384; 85610; 85730; 86780; 86850; 86900; 86901; 94762; A4314; A4649; J0689; J0696; J1650; J1885; J2175; J2210; J2274; J2371; J2405; J2590; J2765; J2795; J3010; J3490; J7050; J7120; Q9967; S0191; A9270; J2270